=== PATIENT | male | born 1950 | race African-American/Black ===

== ENCOUNTER 2017-02-24 19:13 | Emergency (ER) | payer OTHER ==
[2016-10-17 16:07] VITALS: Ht 167.6 cm; Wt 81.6 kg
[~2017-02-24] VITALS: Ht 167.6 cm; Wt 81.6 kg
[~2017-02-24 19:13] MED LIST: ALLO100T GT; AMI200 GT; DEPAK250 GT; EPOE3000 SQ; HYDR-1189 PO; LEVE500T53 GT; LORA-258 GT; METO-442 GT; MIDO10TA GT; SERT-131 GT; SSNOVOLOG SUBCUT; TYLL650 PO; XOP.63 INH
--- NOTE | 2017-02-24 19:13 | NUR ---
Patient to ER bed 1 to gown for evaluation. Side rails up. Report given to SILVANO LUTHER.
--- NOTE | 2017-02-24 19:15 | NUR ---
Patient arrived to ED via BLS a/o x 4 with c/o GI tube dislodgement. Site appears intact with no drainage. Denies N/V. Denies ABD pain. No distention noted. Patient does not appear in acute distress at this time. Will continue to monitor.
[2017-02-24 19:17] VITALS: BP 117/65; PULSE 109; RESP 26; TEMP 98.9; O2SAT 93
--- NOTE | 2017-02-24 19:25 | NUR ---
ER Dr. Mayfield at bedside examining patient.
--- NOTE | 2017-02-24 19:30 | NUR ---
Dr. Mayfield at bedside for G tube change.
[2017-02-24] MEDS ORDERED: GASTROGRAFIN 120 ML ONE (19:56)
[2017-02-24 21:39] VITALS: BP 131/88; PULSE 104; RESP 26; TEMP 97.8; O2SAT 94
--- NOTE | 2017-02-24 21:39 | NUR ---
Patient given written and verbal discharge instructions and verbalizes understanding. ER MD discussed with patient the results and treatment provided. Patient in stable condition. ID arm band removed. Patient educated on pain management and to follow up with PMD. Pain Scale 0/10. Opportunity for questions provided and answered. Pt unable to sign discharge instructions.
== END 2017-02-24 21:39 | disposition home or self-care (01) ==
LOC: SED 19:13
DX: K94.23 Gastrostomy malfunction (principal); E11.29 Type 2 diabetes mellitus with other diabetic kidney complication; N28.9 Disorder of kidney and ureter, unspecified; K21.9 Gastro-esophageal reflux disease without esophagitis
CPT/HCPCS: 43760; 74240; 99284; Q9963; J7030